=== PATIENT | female | born 1960 | race Caucasian/White ===

== ENCOUNTER 2016-06-21 16:53 | Emergency (ER) | payer OTHER ==
[~2016-06-21] VITALS: Ht 170.2 cm; Wt 87.5 kg
[~2016-06-21 16:53] MED LIST: HYDR-4100 PO; LEVO88TA5 PO; MELO15TA13 PO; MIRA50TA PO
[2016-06-21 16:55] VITALS: BP 142/94; PULSE 110; RESP 18; TEMP 98.4; O2SAT 98
--- NOTE | 2016-06-21 17:05 | NUR ---
Patient triaged and placed in waiting room. VSS and patient appears in no acute distress at this time. Accompanied by DAUGHTER, awaiting available bed, and MD notified of need for MSE.
--- NOTE | 2016-06-21 18:38 | NUR ---
Patient to ER bed H to gown for evaluation. Side rails up. Report given to Haven QUICK.
--- NOTE | 2016-06-21 18:46 | NUR ---
Patient to ER C/O severe low back pain radiating to her left leg "from the hip to knee down to ankle" patient states "i can't laydown and i can't sit up or stand, no position helps" patient is teary and looks distraught. Denies trauma or injury, states long history of herniated disk and sciatica. AAOx4, unlabored breathing.
--- NOTE | 2016-06-21 19:09 | NUR ---
ER JOSEPH Harris at bedside for evaluation
[2016-06-21 19:29] LABS: BASOPHILS % (AUTO) 0.5 % (0.0-2.0); EOSINOPHILS # (AUTO) 0.3 K/uL (0.0-0.4); EOSINOPHILS % (AUTO) 3.3 % (0.0-4.0); HEMATOCRIT 38.4 % (36-48); LYMPHOCYTES # (AUTO) 2.4 K/uL (1.0-5.5); LYMPHOCYTES % (AUTO) 24.8 % (20.5-51.5); MEAN CORPUSCULAR HEMOGLOBIN 28 pg (27-31); MEAN CORPUSCULAR HGB CONC 34 % (32-36); MEAN CORPUSCULAR VOLUME 83 fL (79.0-98.0); MONOCYTES # (AUTO) 0.7 K/uL (0.0-1.0); MONOCYTES % (AUTO) 7.6 % (1.7-9.3); NEUTROPHILS # (AUTO) 6.2 K/uL (1.8-7.7); NEUTROPHILS % (AUTO) 63.8 % (40.0-70.0); PLATELET COUNT (AUTO) 506 K/uL (130-430); RED BLOOD CELL COUNT(AUTO) 4.62 MIL/uL (4.2-6.2); RED CELL DISTRIBUTION WIDTH 13.8 % (9.0-15.0); WHITE BLOOD COUNT (AUTO) 9.6 K/uL (4.8-10.8)
[2016-06-21 19:44] LABS: CALCIUM 9.6 mg/dL (8.4-11.0); CREATININE 0.69 mg/dL (0.55-1.30); POTASSIUM 3.2 mmol/L (3.5-5.1)
[2016-06-21] MEDS ORDERED: fentaNYL CITRATE/PF 100 MCG/2 ML AMP IM ONE (19:45)
[2016-06-21 19:49] LABS: TOTAL BILIRUBIN 0.4 mg/dL (0.0-1.0); TOTAL PROTEIN, SERUM 8.3 g/dL (6.4-8.3)
[2016-06-21] MEDS ORDERED: POTASSIUM CHLORIDE 20 MEQ TAB.PRT.SR PO ONE (20:30)
[2016-06-21 20:54] VITALS: BP 126/74; PULSE 88; RESP 19; TEMP 98.3; O2SAT 97
--- NOTE | 2016-06-21 20:54 | NUR ---
Patient given written and verbal discharge instructions and verbalizes understanding. ER SHAKER SCREEN OPERATOR Kimberly discussed with patient the results and treatment provided. Patient in stable condition. ID arm band removed. Patient educated on pain management and to follow up with PMD. Pain Scale 0/10. Opportunity for questions provided and answered.
== END 2016-06-21 20:54 | disposition home or self-care (01) ==
LOC: SED 16:53
DX: M54.5 Low back pain (principal); G89.29 Other chronic pain; E87.6 Hypokalemia; Z88.1 Allergy status to other antibiotic agents
CPT/HCPCS: 36415; 80053; 85025; 96372; 99284; J3010

== ENCOUNTER 2016-07-08 15:17 | Inpatient (IN) | payer OTHER ==
[~2016-07-08] VITALS: Ht 170.2 cm; Wt 86.2 kg
--- NOTE | 2016-07-08 15:40 | NUR ---
Patient to ER bed 8 to gown for evaluation by angely marie. Side rails up. Report given to me.
[2016-07-08 15:44] VITALS: BP 137/94; PULSE 111; RESP 18; TEMP 97.6; O2SAT 95
--- NOTE | 2016-07-08 15:45 | NUR ---
Patient presents to the emergency department with complaints of pain to l hip radiating to the L leg since 05/13, deneis trauma. (+1) pitting edema noted to l ankle/ foot which pt states shes been having since the pain started. Patient states she has been having the pain and managing it with tylenol and norco 10-325 which helped a little bit. pt was sent by Dr garcia.
--- NOTE | 2016-07-08 15:45 | NUR ---
ER at bedside examining patient.
[2016-07-08] MEDS ORDERED: HYDROmorphone 1 MG INJ. 1 MG/ML AMPUL IVP ONE (16:15)
[2016-07-08] MEDS ORDERED: ONDANSETRON HCL 4 MG/2 ML VIAL IVP ONE (16:15)
[2016-07-08 16:22] LABS: BASOPHILS # (AUTO) 0.1 K/uL (0.0-0.2); BASOPHILS % (AUTO) 0.6 % (0.0-2.0); EOSINOPHILS # (AUTO) 0.3 K/uL (0.0-0.4); EOSINOPHILS % (AUTO) 2.7 % (0.0-4.0); HEMATOCRIT 43.3 % (36-48); HEMOGLOBIN 14.3 g/dL (12.0-16.0); LYMPHOCYTES % (AUTO) 24.2 % (20.5-51.5); MEAN CORPUSCULAR HEMOGLOBIN 28 pg (27-31); MEAN CORPUSCULAR HGB CONC 33 % (32-36); MEAN CORPUSCULAR VOLUME 84 fL (79.0-98.0); MONOCYTES # (AUTO) 0.7 K/uL (0.0-1.0); NEUTROPHILS # (AUTO) 8.4 K/uL (1.8-7.7); NEUTROPHILS % (AUTO) 66.5 % (40.0-70.0); PLATELET COUNT (AUTO) 601 K/uL (130-430); RED BLOOD CELL COUNT(AUTO) 5.18 MIL/uL (4.2-6.2); RED CELL DISTRIBUTION WIDTH 13.7 % (9.0-15.0); WHITE BLOOD COUNT (AUTO) 12.5 K/uL (4.8-10.8)
[2016-07-08 16:25] LABS: CALCIUM 9.8 mg/dL (8.4-11.0); CREATININE 0.67 mg/dL (0.55-1.30); POTASSIUM 3.6 mmol/L (3.5-5.1)
[2016-07-08 16:29] LABS: ALBUMIN 3.9 g/dL (3.4-4.8); TOTAL BILIRUBIN 0.2 mg/dL (0.0-1.0); TOTAL PROTEIN, SERUM 8.9 g/dL (6.4-8.3)
--- NOTE | 2016-07-08 16:41 | NUR ---
Pt back from radiology, Dr Bowden at bedside
--- NOTE | 2016-07-08 16:50 | NUR ---
# 20 gauge angiocath placed to L AC. Use of asceptic technique. Opsite placed over site. Blood return noted. Flushed with 10 cc of normal saline. No evidence of infiltration noted. Patient tolerated well.
--- NOTE | 2016-07-08 17:00 | NUR ---
medicated pt per MD order
[2016-07-08 17:11] LABS: BILIRUBIN,URINE NEGATIVE (NEGATIVE); BLOOD, URINE 1+ (NEGATIVE); CLARITY/URINE SL CLOUDY (CLEAR); COLOR,URINE YELLOW (YELLOW); GLUCOSE,URINE NEGATIVE (NEGATIVE); KETONES,URINE NEGATIVE (NEGATIVE); LEUKOCYTE ESTERASE ,URINE NEGATIVE (NEGATIVE); NITRITE, URINE NEGATIVE (NEGATIVE); PH,URINE 5.5 (5.0-8.0); PROTEIN URINE TRACE (NEGATIVE); UROBILINOGEN,URINE 0.2 (0.2-1.0)
[2016-07-08] MEDS ORDERED: NACL 0.9% 1,000 ML IV ONE (17:15)
[2016-07-08] MEDS ORDERED: PIPERACILLIN/TAZO 3.375/DEX-IS 50 ML IV SCH (17:15)
--- NOTE | 2016-07-08 17:17 | NUR ---
lab at bedside for blood culture and lactic acid draw
[2016-07-08 17:18] LABS: BACTERIA,URINE MODERATE /HPF (None Seen); MUCUS,URINE 2+ /LPF (None Seen); RBC,URINE 0-3 /HPF (0-3)
--- NOTE | 2016-07-08 17:19 | NUR ---
Medication reconciliation completed with information provided by patient. Any prior medication reconciliation on file was reviewed and corrected.
[2016-07-08] MEDS ORDERED: PIPERACILLIN/TAZO 3.375/DEX-IS 50 ML IV ONE (17:30)
[2016-07-08] MEDS ORDERED: PIPERACILLIN/TAZOBACTAM 3.375 GM/VIAL (ZOSYN) IV ONE (17:42)
--- NOTE | 2016-07-08 17:48 | NUR ---
PAIN MGMT MD DR Rebecca RODRIGUEZ AWARE OF THE CONSULT, RE: LOWER BACK PAIN
--- NOTE | 2016-07-08 17:55 | NUR ---
Patient will be admitted to care of dr quevedo. Admitted to medsurg unit. Will go to room 135. Summary report printed. Report given to nurse.
[2016-07-08 18:01] VITALS: BP 131/97; PULSE 87; RESP 18; TEMP 98.2; O2SAT 95
--- NOTE | 2016-07-08 18:01 | NUR ---
ADMISSION NOTE Received patient from ER via [facility], received report from alfonzo QUICK. Patient admitted with diagnosis of lower back pain . Patient oriented to hospital routine, call light, toileting and safety-patient verbalized understanding.c/o of back pain 08/23. pt stated received pain med in er and helped. will continue to monitor
[2016-07-08] MEDS ORDERED: ACETAMINOPHEN 325 MG TABLET PO PRN (18:15)
[2016-07-08] MEDS ORDERED: MORPHINE 2 MG/ML INJ. SYRINGE IVP PRN (18:15)
[2016-07-08] MEDS ORDERED: MORPHINE 4 MG/ML INJ. SYRINGE IVP PRN (18:15)
[2016-07-08] MEDS ORDERED: D5NS 1,000 ML IV SCH (18:15)
[2016-07-08] MEDS ORDERED: ONDANSETRON HCL 4 MG/2 ML VIAL IVP PRN (18:15)
--- NOTE | 2016-07-08 18:50 | NUR ---
CLOSING NOTES PT AWAKE RESTING IN BED. COMPLAINTS OF MILD BACK PAIN WITH MOVEMENT. NO DISTRESS NOTED. ENCOURAGED TO CALL FOR ASSISTANCE. RE-EDUCATED ABOUT SAFETY AND FALL MEASURES. CALL LIGHT WITHIN REACH. WILL ENDORSE CARE TO INCOMING NURSE.
--- NOTE | 2016-07-08 19:35 | NUR ---
NOTES; SEEN PT SITTING UP IN BED, A/A/AO X4. NO ACUTE DISTRESS NOTED. VITAL SIGNS STABLE, AFEBRILE. LEFT LEG WEAKNESS, AMBULATES WITH CANE. INSTRUCTED PT TO CALL FOR ASSISTANCE TO GET OUT OF BED AT ALL TIMES. PT VERBALIZED UNDERSTANDING. IV ON THE LEFT AC WITH ORDERED IVF INFUSING WELL. NO SIGNS OF INFILTRATION OR INFECTION NOTED. PT DENIES ANY PAIN AT THIS TIME. INSTRUCTED PT ON THE USE OF CALL LIGHT TO CALL FOR ANY NEED TO ASSIST. PT VERBALIZED UNDERSTAND. BED LOCKED AND IN LOW POSITION, SIDE RAILS UP X3, BED ALARM ON, CALL LIGHT AND BEDSIDE TABLE WITHIN REACH. WILL CONTINUE TO MONITOR.
[2016-07-08 19:42] VITALS: BP 152/89; PULSE 82; RESP 18; TEMP 98; O2SAT 99
[2016-07-08] MEDS ORDERED: MYRBETRIQ ER 50 MG TABLET PO ONE (19:45)
[2016-07-08] MEDS ORDERED: LEVOTHYROXINE SODIUM 0.15 MG TABLET PO ONE (19:45)
--- NOTE | 2016-07-08 20:19 | NUR ---
NOTES; PT COMPLAIN OF IV SITE HURTING. PT REQUESTED FOR IV TO BE REMOVED. RESTARTED NEW IV ON THE LEFT HAND, GAUGE 22. OLD IV REMOVED WITH CATHETER TIP INTACT. WILL CONTINUE TO MONITOR.
--- NOTE | 2016-07-08 20:37 | NUR ---
PAGED DR. RODRIGUEZ @ [phone]. BLAIR HATCH already talked to Dr. Rodriguez.
[2016-07-08] MEDS ORDERED: HYDROmorphone 1 MG INJ. 1 MG/ML AMPUL IVP PRN (20:45)
--- NOTE | 2016-07-08 20:53 | NUR ---
NOTES; PT C/O 11/22 BACK PAIN. PT STATED MORPHINE GIVES HER SEVER HEADACHE AND WILL PREFER DILAUDID INSTEAD. DR RODRIGUEZ CALLED, SPOKE WITH MD AND INFORMED ABOUT PT COMPLAINT OF PAIN AND ORDERED PAIN MEDICATION OF MORPHINE SIDE EFFECT OF HEADACHE. NEW DILAUDID ORDERS RECEIVED. RN COVERING NOTIFIED.
--- NOTE | 2016-07-08 21:01 | NUR ---
NOTES; AMBULATED TO THE BATHROOM, LEFT LEG WEAKNESS. PT VOIDED FREELY. ASSISTED BACK TO BED. SAFETY MEASURES IN PROGRESS. WILL CONTINUE TO MONITOR.
[2016-07-08] MEDS: HYDROmorphone 1 MG INJ. 1 MG/ML AMPUL IVP PRN (21:20)
[2016-07-09] VITALS (10 sets, daily range): BP systolic 124–185; BP diastolic 71–99; PULSE 74–99; RESP 16–18; TEMP 97.8–98.9; O2SAT 94–99
--- NOTE | 2016-07-09 00:04 | NUR ---
NOTES; NORCO 10MG 1 TAB ADMINISTERED FOR 4/10 BACK PAIN. REMINDED NORCO MAY CAUSE DROWSINESS, SO PT TO USE CALL LIGHT TO CALL FOR ANY NEED TO ASSIST. PT VERBALIZED UNDERSTANDING
--- NOTE | 2016-07-09 02:28 | NUR ---
NOTES; APPEARED TO BE SLEEPING, RESPIRATION EVEN AND UNLABORED.SAFETY MEASURES IN PROGRESS. CALL LIGHT WITHIN REACH.
[2016-07-09] MEDS: HYDROmorphone 1 MG INJ. 1 MG/ML AMPUL IVP PRN ×5 (02:33→19:55)
--- NOTE | 2016-07-09 04:05 | NUR ---
NOTES; APPEARED TO BE SLEEPING, RESPIRATION EVEN AND UNLABORED.SAFETY MEASURES IN PROGRESS. CALL LIGHT WITHIN REACH.
[2016-07-09] MEDS: LEVOTHYROXINE SODIUM 0.15 MG TABLET PO SCH (06:21)
--- NOTE | 2016-07-09 06:23 | NUR ---
NOTES; SCHEDULED PO MEDICATION ADMINISTERED. PT TOLERATED MEDS WELL. C/O 7/10 LEFT LEG AND BACK PAIN. RN COVERING NOTIFIED TO MEDICATE PT. ALL NEEDS ATTENDED. SAFETY MEASURES MAINTAINED.
--- NOTE | 2016-07-09 08:00 | NUR ---
AM NOTES PT AAOX4 WITH COMPLAINTS OF BACK, HIP AND LEFT LEG PAIN 12/23. STATES PAIN MEDICATIONS ARE NOT REALLY HELPING MUCH. COMFORT AND RELAXATION MEASURES GIVEN. NO DISTRESS NOTED. FALL AND SAFETY PRECAUTIONS ENFORCED WITH WITH BED ALARM ARMED. ENCOURAGED TO CALL FOR ASSISTANCE. CALL LIGHT WITHIN REACH. WILL MONITOR.
[2016-07-09] MEDS: MELOXICAM 7.5 MG TABLET PO SCH (08:53)
[2016-07-09] MEDS: MYRBETRIQ ER 50 MG TABLET PO SCH (08:54)
[2016-07-09 08:55] LABS: HCG,QUAL RESULT NEGATIVE (NEGATIVE)
[2016-07-09] MEDS: HYDROcodone/ACETAMIN 10-325 MG TAB PO PRN ×2 (08:55)
--- NOTE | 2016-07-09 08:55 | NUR ---
NORCO MEDICATED PATIENT WITH NORCO 10-325MG 1 PILL FOR BACK, HIP AND LEFT LEG PAIN 10/23. WILL MONITOR.
[2016-07-09 09:00] LABS: BILIRUBIN,URINE NEGATIVE (NEGATIVE); CLARITY/URINE CLEAR (CLEAR); COLOR,URINE YELLOW (YELLOW); GLUCOSE,URINE NEGATIVE (NEGATIVE); KETONES,URINE NEGATIVE (NEGATIVE); LEUKOCYTE ESTERASE ,URINE TRACE (NEGATIVE); NITRITE, URINE NEGATIVE (NEGATIVE); PH,URINE 6.5 (5.0-8.0); PROTEIN URINE NEGATIVE (NEGATIVE); UROBILINOGEN,URINE 0.2 (0.2-1.0)
[2016-07-09] MEDS ORDERED: NON-FORMULARY MEDICATION (Mirabegron (Myrbetriq) 50 MG) PO SCH (09:00)
[2016-07-09 09:15] LABS: BLOOD, URINE TRACE (NEGATIVE)
[2016-07-09 09:36] LABS: BACTERIA,URINE FEW /HPF (None Seen); MUCUS,URINE None Seen /LPF (None Seen); RBC,URINE 0-3 /HPF (0-3); WBC,URINE 0-3 /HPF (0-3)
[2016-07-09 09:43] LABS: PROTHROMBIN TIME 10.8 SECS (9.5-12.5)
--- NOTE | 2016-07-09 10:00 | NUR ---
ROUNDS PT AWAKE AND STATES MEDICATION IS NOT REALLY HELPING MUCH. PAIN SCALE IS 5/10 AND ESCALATING. REPOSITION AND COMFORT MEASURES DONE. ENCOURAGED TO CALL FOR ASSISTANCE. CALL LIGHT WITHIN REACH. WILL MONITOR.
--- NOTE | 2016-07-09 10:48 | NUR ---
dilaudid 1 mg iv given at this time. grade of pain 10/10. made comfortable. assists on adls
--- NOTE | 2016-07-09 12:00 | NUR ---
ROUNDS PT AWAKE WITH COMPLAINTS OF VERY MILD PAIN BUT FEELS COMFORTABLE AT THIS TIME. NO DISTRESS NOTED. PT NPO FOR PROCEDURE AT [address] RODRIGUEZ.
[2016-07-09] MEDS: NACL 0.9% 1,000 ML IV SCH ×2 (12:27→23:03)
--- NOTE | 2016-07-09 14:00 | NUR ---
ROUNDS PT AWAKE RESTING IN BED WITH COMPLAINTS OF MILD PAIN TO BACK, HIPS AND LEFT LEG. NO DISTRESS NOTED. KEPT COMFORTABLE. WILL MONITOR.
--- NOTE | 2016-07-09 14:45 | NUR ---
PAIN PT COMPLAINTS OF BACK, HIP AND LEFT LEG PAIN 8/ AND WANTS TO BE MEDICATED. INFORMED PATIENT THAT WE WILL CALL DR. RODRIGUEZ FOR MEDICATION ADMINISTRATION APPROVAL.
--- NOTE | 2016-07-09 15:00 | NUR ---
DR. RODRIGUEZ CALLED AND SPOKE WITH MD TO GET APPROVAL FOR MEDICATION ADMINISTRATION OF DILAUDID IVP FOR PAIN 12/23. APPROVED OF ADMINISTERING DILAUDID.
[2016-07-09] MEDS ORDERED: methylPREDNISolone ACETATE 80 MG/ML IM ONE (15:34)
--- NOTE | 2016-07-09 15:46 | NUR ---
DILAUDID 1 MG IV GIVEN. FLUSHED NS 10CC. ASSISTS ON ADLS. MADE COMFORTABLE.
--- NOTE | 2016-07-09 16:30 | NUR ---
SURGERY PT LEFT FLOOR TO SURGERY VIA BED. VITAL SIGNS: T-99.0, P-96, R-18, BP-157/89, O2 SAT-98%. NO DISTRESS NOTED.
[2016-07-09] MEDS ORDERED: MIDAZOLAM HCL 5 MG/5 ML VIAL ONE (17:05)
[2016-07-09] MEDS ORDERED: fentaNYL CITRATE/PF 100 MCG/2 ML AMP ONE (17:05)
[2016-07-09] MEDS ORDERED: IOHEXOL 50 ML IV ONE (17:23)
--- NOTE | 2016-07-09 18:00 | NUR ---
BACK FROM SURGERY PT BACK FROM RECOVERY ROOM AAOX4 WITH NO COMPLAINTS OF PAIN OR DISCOMFORT. NO DISTRESS NOTED. VITAL SIGNS: T-98.7, P-86, R-18, BP-124/99, O2 SAT-99%. KEPT PT COMFORTABLE. DINNER SERVED. ENCOURAGED TO CALL FOR ASSISTANCE. CALL LIGHT WITHIN REACH. WILL MONITOR.
--- NOTE | 2016-07-09 18:43 | NUR ---
CLOSING NOTES PT AWAKE FINISHING UP WITH DINNER. NO COMPLAINTS OF PAIN OR DISCOMFORT. NO DISTRESS NOTED. REPOSITIONED AND KEPT COMFORTABLE. WILL ENDORSE CARE TO INCOMING NURSE.
--- NOTE | 2016-07-09 19:45 | NUR ---
ROUNDS PATIENT RESTING COMFORTABLY IN BED, NOT IN DISTRESS, VITALS STABLE.. DENIES ANY PAIN AND DISCOMFORT AT THIS TIME. ASSESSMENT DONE AND DOCUMENTED. SEE FLOWSHEET. NEEDS ATTENDED TO. REPOSITIONED AND MADE COMFORTABLE. SAFETY AND FALL PRECAUTION MEASURES IN PLACED. CALL LIGHT PLACED WITH PATIENT.
--- NOTE | 2016-07-09 21:15 | NUR ---
MEDICATION DUE MEDICATIONS GIVEN ORDERED, TOLERATED WELL. WILL CONTINUE TO MONITOR.
[2016-07-10] MEDS: HYDROmorphone 1 MG INJ. 1 MG/ML AMPUL IVP PRN ×4 (00:44→13:22)
--- NOTE | 2016-07-10 00:44 | NUR ---
PAIN PATIENT C/O PAIN ON HER BACK AND LEFT ANKLE, 8/10 PAIN SCALE. DILAUDID 1 MG GIVEN IV ORDERED PRN FOR PAIN. MEDICATION SIDE EFFECTS EXPLAINED AND TO USE CALL LIGHT FOR HELP NEEDED. PATIENT VERBALIZED UNDERSTANDING. WILL CONTINUE TO MONITOR.
--- NOTE | 2016-07-10 02:15 | NUR ---
ROUNDS PATIENT ASLEEP, VITALS STABLE, WILL CONTINUE TO MONITOR.
[2016-07-10 04:50] VITALS: BP 134/91; PULSE 92; RESP 18; TEMP 98.2; O2SAT 96
--- NOTE | 2016-07-10 04:56 | NUR ---
PAIN PATIENT C/O PAIN AT THE BACK , 8/10 PAIN SCALE, DILAUDID 1 MG GIVEN IV ORDERED PRN. SIDE EFFECTS OF THE MEDICATION DISCUSSED AND TO USE THE CALL LIGHT FOR HELP WHEN NEEDED. PATIENT VERBALIZED UNDERSTANDING. WILL CONTINUE TO MONITOR.
--- NOTE | 2016-07-10 06:16 | NUR ---
CLOSING NOTES PATIENT ASLEEP AT THIS TIME, VITALS STABLE, NO MORE PAIN AND DISCOMFORT NOTED. ALL NEEDS ATTENDED TO. SAFETY AND FALL PRECAUTION MEASURES MAINTAINED. CALL LIGHT PLACED WITHIN REACH.
--- NOTE | 2016-07-10 06:30 | NUR ---
Nutrition Update Morgan Scale 18 noted. Pt admitted for lower back pain. Diet: regular BMI: 29.8 kg/m2 RD to follow per nutrition care standards.
--- NOTE | 2016-07-10 07:55 | NUR ---
INITIAL NOTES RECEIVED PATIENT ON BED AWAKE EATING.BREATHING EVEN AND UNLABORED.NO ACUTE DISTRESS.WITH IVF INFUSING WELL;NO SIGNS AND SYMPTOMS OF INFILTRATION.LEFT LEG WITH PITTING EDEMA +2;ELEVATED WITH PILLOW.SAFETY AND FALL PRECAUTIONS IN PLACE.CALL LIGHT WITHIN REACH
[2016-07-10 07:56] VITALS: BP 134/77; PULSE 98; RESP 19; TEMP 98.6
[2016-07-10] MEDS: MYRBETRIQ ER 50 MG TABLET PO SCH (09:47)
[2016-07-10] MEDS: MELOXICAM 7.5 MG TABLET PO SCH (09:47)
[2016-07-10] MEDS: LEVOTHYROXINE SODIUM 0.15 MG TABLET PO SCH (09:47)
--- NOTE | 2016-07-10 10:30 | NUR ---
NOTES CHECKED PATIENT;NEEDS ATTENDED TO
[2016-07-10 11:48] VITALS: BP 159/96; PULSE 97; RESP 19; TEMP 98.2; O2SAT 100
--- NOTE | 2016-07-10 12:40 | NUR ---
NOTES PATIENT EATING LUNCH;WITH GOOD APPETITE;NO ACUTE DISTRESS
--- NOTE | 2016-07-10 14:10 | NUR ---
NOTES PAGED FOR DISCHARGE ORDER;AWAITING FOR CALL BACK
--- NOTE | 2016-07-10 14:20 | NUR ---
NOTES DR. LANDON CALLED;OBTAINED ORDER FOR DISCHARGE AND CARRIED OUT
[2016-07-10 14:35] VITALS: BP 159/86; PULSE 97; RESP 19; TEMP 98.2; O2SAT 100
[2016-07-10] MEDS ORDERED: MIDAZOLAM HCL 5 MG/5 ML VIAL IVP ONE (15:34)
[2016-07-10] MEDS ORDERED: BUPIVACAINE /PF 0.25% 30 ML VIAL INJ ONE (15:34)
[2016-07-10] MEDS ORDERED: fentaNYL CITRATE/PF 100 MCG/2 ML AMP IVP ONE (15:34)
[2016-07-10 15:56] VITALS: BP 141/89; PULSE 80; RESP 19; TEMP 97.9; O2SAT 97
== END 2016-07-10 15:35 | disposition home or self-care (01) | DRG 552 ==
LOC: SED 15:51 → SMU 16:38
PROVIDERS: ADMIT Internal Medicine Hospice and Palliative Medicine; ATTEND Internal Medicine Hospice and Palliative Medicine
PROC: 3E0S3BZ Introduction of Anesthetic Agent into Epidural Space, Percutaneous Approach (ICD-10-PCS; 2016-07-09)
PROC: 3E0S33Z Introduction of Anti-inflammatory into Epidural Space, Percutaneous Approach (ICD-10-PCS; principal; 2016-07-09 14:00)
DX: M51.16 Intervertebral disc disorders with radiculopathy, lumbar region (principal); M48.06 Spinal stenosis, lumbar region; G89.4 Chronic pain syndrome; F41.9 Anxiety disorder, unspecified; Z88.1 Allergy status to other antibiotic agents; Z79.899 Other long term (current) drug therapy
CPT/HCPCS: 36415; 71010; 77002; 80053; 81000-TC; 81025; 83605; 84703; 85025; 85610-TC; 85730-TC; 87040-TC; 87081; 87086; 93005; 96365; 96375; 99285; J1040; J1170; J2250; J2405; J2543; J3010; J3490; J7030; J7042; J7060; Q9967

== ENCOUNTER 2020-09-03 14:48 | Emergency (ER) | payer BC, OTHER ==
[~2020-09-03] VITALS: Ht 172.7 cm; Wt 96.2 kg
[~2020-09-03 14:48] MED LIST changes: +HYDR-3927 PO; -HYDR-4100 PO
[2020-09-03 14:50] VITALS: BP_SYST 131
== END 2020-09-03 17:12 | disposition home or self-care (01) ==
LOC: SED 14:48
DX: J32.9 Chronic sinusitis, unspecified (principal); H57.89 Other specified disorders of eye and adnexa; I10 Essential (primary) hypertension; E07.9 Disorder of thyroid, unspecified; K21.9 Gastro-esophageal reflux disease without esophagitis; Z88.6 Allergy status to analgesic agent; Z90.49 Acquired absence of other specified parts of digestive tract; Z90.710 Acquired absence of both cervix and uterus
CPT/HCPCS: 70450-TC; 70480; 76376; 99285